=== PATIENT | female | born 1950 | race African-American/Black ===

== ENCOUNTER 2025-01-21 13:57 | Emergency (ER) | payer OTHER, MEDICAID, SELFPAY ==
[2025-01-21 13:59] VITALS: BMI 28.3
[2025-01-21 14:45] VITALS: BP 167/74; PULSE 80; RESP 18; TEMP 37.2; O2SAT 98
--- NOTE | 2025-01-21 15:06 | PD.EDRME ---
Rapid Medical Screening Exam RME Arrival date/time: 01/21/25 13:57 This is a 74-year-old female that comes in with complaints of right leg swelling. Pain. Patient was told by her primary doctor for possible left leg. Patient has a history of high blood pressure and hyperlipidemia. I have greeted and performed a focused initial assessment of this patient. Initial appropriate labs ordered at this time. A comprehensive ED assessment and evaluation of the patient and analysis of all test and completion of medical decision making process will be conducted by additional ED provider. Chief Complaint: General Adult/Misc Complain Time Seen by Provider: 01/21/25 14:35 Vital signs: Vital Signs Temperature 99 F 01/21/25 14:45 Pulse Rate 80 01/21/25 14:45 Respiratory Rate 18 01/21/25 14:45 Blood Pressure 167/74 H 01/21/25 14:45 Pulse Oximetry (%) 98 01/21/25 14:45 Oxygen Delivery Method Room Air 01/21/25 14:45
--- NOTE | 2025-01-21 15:31 | XR_ITS ---
Examination: Duplex scan of the lower extremity, unilateral right complete Date and time of exam: January 21, 2025 1606 hours INDICATIONS: Right leg swelling and pain beginning 4 days ago Technique: Duplex scan of the extremity veins using B-mode/grayscale imaging and Doppler spectral analysis and color flow Attention is directed to internal echogenicity, compression and augmentation involving these veins, color flow assessment, spectral analysis Findings: Major deep venous structures in the extremity demonstrate normal course and caliber. There is no evidence of deep vein thrombosis. Normal color flow and spectral analysis Right popliteal cyst 3.9 cm Impression: Negative for DVT..
[2025-01-21 16:10] LABS: Basophils % (Auto) 0 % (0-2.5); Eosinophils # (Auto) 0.1 Thou/mm3 (0.0-0.5); Eosinophils % (Auto) 3 % (0-10); Hematocrit 37.7 % (36.0-46.0); Hemoglobin 13.3 g/dL (12.0-16.0); Immature Granulocytes % (Auto) 0 % (0-0); Lymphocytes # (Auto) 1.9 Thou/mm3 (1.0-4.8); Lymphocytes % (Auto) 43 % (10-50); Mean Corpuscular HGB Conc 35.3 g/dl (31.0-37.0); Mean Corpuscular Hemoglobin 33.3 pg (25.0-35.0); Mean Corpuscular Volume 94 fL (80-100); Monocytes # (Auto) 0.3 Thou/mm3 (0.0-0.8); Monocytes % (Auto) 7 % (0-12); Neutrophils % (Auto) 46 % (37-80); Nucleated Red Blood Cell % 0 /100 WBC (0); Platelet Count 212 Thou/mm3 (140-440); RDW Standard Deviation 43.7 fL (36.4-46.3); White Blood Count 4.3 Thou/mm3 (3.6-11.0)
[2025-01-21 16:30] LABS: Alanine Aminotransferase 13 U/L (10-49); Albumin, Serum 4.4 gm/dL (3.4-4.8); Albumin/Globulin Ratio 1.3 (1.2-2.2); Alkaline Phosphatase 78 U/L (46-116); Anion Gap 8 (7-16); Aspartate Amino Transferase 16 U/L (0-34); BUN/Creatinine Ratio 20 Ratio (12-20); Bilirubin,Total 0.3 mg/dL (0.3-1.2); Blood Urea Nitrogen 22 mg/dL (9-23); Carbon Dioxide 30.7 mMol/L (20.0-31.0); Chloride 104 mMol/L (98-107); Creatinine (Component) 1.1 mg/dL (0.6-1.3); Estimated Creatinine Clearance 40.6 mL/min (>60); Globulin 3.4 gm/dL (2.3-3.5); Glucose 107 mg/dL (74-106); Osmolality,Calculated 288 (275-295); Potassium 3.6 mMol/L (3.4-5.1); Sodium 143 mMol/L (136-145); Total Protein 7.8 gm/dL (5.7-8.2); eGFR 52 See Note
[2025-01-21 16:32] LABS: Prothrombin Time 10.8 Seconds (9.0-12.2)
[2025-01-21 16:52] VITALS: BP 163/86; PULSE 72; RESP 18; TEMP 36.7; O2SAT 98
--- NOTE | 2025-01-21 18:26 | PD.EDEXREM ---
ED Extremity Problem RME/HPI General Chief complaint: General Adult/Misc Complain Stated complaint: SEND BY PCP FOR POSSIBEL DVT ON RIGHT LEG Time Seen by Provider: 01/21/25 14:35 Arrival date/time: 01/21/25 13:57 RME / HPI RME / HPI Narrative: 01/21/25 13:57 This is a 74-year-old female that comes in with complaints of right leg swelling. Pain. Patient was told by her primary doctor for possible left leg. Patient has a history of high blood pressure and hyperlipidemia. I have greeted and performed a focused initial assessment of this patient. Initial appropriate labs ordered at this time. A comprehensive ED assessment and evaluation of the patient and analysis of all test and completion of medical decision making process will be conducted by additional ED provider. This section includes all my notes and documentations, including HPI, PE, and ED course. Erick Eng MD HPI: 74 y/o female with Hx of Cardiac Arrhythmia, Hypertension, and Varicose Veins presents to ED c/o right lower leg swelling x 4 days. PCP was concerned for blood clot. No other complaints. ROS: All negative except as documented in HPI. PHYSICAL EXAM: General:? Alert and oriented.? No acute distress when remaining still. Eyes:? Conjunctivae and lids clear.?? ENT:? No nasal congestion.? Neck:? Supple.?? Heart:? RRR.? Lungs:? No respiratory distress.? Good air movement.? No rhonchi, wheezing, rales.?? Skin:? Warm and dry.?? Neuro:? Alert and oriented X 3. Legs: Right lower leg remarkable for moderate edema with no erythema or calor or tenderness. I reviewed all diagnostic test results. My review of the US report is Negative for DVT. Blood tests unremarkable. At this point, diagnoses include dependent right leg swelling. Recommended supportive care. Based on my best medical judgment, made decision no further evaluation or treatment indicated at this time. Patient understands and agrees to the discharge instructions customized and printed, see below. Discharge Instructions from Dr. Eng printed for you: 1. Fortunately, there is no DVT, blood clots. 2. When you are sitting or resting or sleeping, elevate your feet/ankles above your waist level. To get the swelling back into your circulation so you can urinate out the swelling. 3. See your doctor on 01/24/2025 if not completely better. 4. Seek immediate medical care with worsening or with any concerns. Erick Eng MD Related Data Home Medications ?Medication ?Instructions ?Recorded ?Confirmed hydrochlorothiazide 25 mg tablet 25 mg PO QAM #0 tabs 07/27/15 08/24/23 ezetimibe 10 mg tablet (Zetia) 10 mg PO QDAY 08/24/23 08/24/23 ibuprofen 800 mg tablet 800 mg PO Q8H PRN Pain 08/24/23 08/24/23 Allergies Allergy/AdvReac Type Severity Reaction Status Date / Time cephalexin AdvReac Severe HIVES Verified 01/21/25 14:00 Review of Systems Review of Systems Systems Reviewed: All systems reviewed, normal except as documented Past Medical History Past Medical History CARDIAC: Positive Cardiac Disorders, Cardiac Arrhythmia, Hypertension and Varicose Veins GASTROINTESTINAL: Positive Gastrointestinal Disorders and Obesity REPRODUCTIVE: Positive Previous Pregnancies MUSCULOSKELETAL: Positive Musculoskeletal Disorders, Arthritis and Scoliosis ENT: Positive Cataracts (thierry) OTHER HISTORY: Positive Hospitalization (surgery) Family History FAMILY HISTORY: Positive Family Surgery Surgical History SURGICAL: Positive Hysterectomy and Tubal Ligation ED Exam Narrative Physical exam: Refer to HPI above Course Quality Measures none Orders Category Date Time Status US venous doppler LE RT Stat Exams 01/21/25 15:31 Completed CBC Stat Lab 01/21/25 15:56 Completed Comprehensive Metabolic Panel Stat Lab 01/21/25 15:56 Completed PT [Prothrombin Time with INR] Stat Lab 01/21/25 15:56 Completed Vital Signs Vital signs: Vital Signs Temperature 99 F 01/21/25 14:45 Pulse Rate 80 01/21/25 14:45 Respiratory Rate 18 01/21/25 14:45 Blood Pressure 167/74 H 01/21/25 14:45 Pulse Oximetry (%) 98 01/21/25 14:45 Oxygen Delivery Method Room Air 01/21/25 14:45 Extremity Problem MDM Narrative MDM Narrative:: Scribe Attestation: aLnie Dorsey, am scribing for and in the presence of Dr. Eng. Provider Notation: Although this document has been carefully reviewed, there may still be some phonetic and other typographical errors.? These errors are purely grammatical due to imperfections in the software program and should not be construed in any way to? compromise the substance of the patient's medical care during this visit. 74 y/o female with Hx of Cardiac Arrhythmia, Hypertension, and Varicose Veins presents to ED c/o right lower leg swelling x 4 days. Patient data External records reviewed:: [facility] previous records (Prior ED records from 10/21/22 reviewed. Patient was seen for Abdominal pain, acute.) Clinical information provided by:: patient Social determinants that could affect healthcare access:: none Patient has the following chronic illnesses:: Cardiac Arrhythmia, Hypertension, Varicose Veins, Obesity, Arthritis and Scoliosis How is presenting disease/condition affected by chronic disease/condition?: exacerbated by Evaluation data The following diagnostics were reviewed and interpreted by me:: lab results and radiology exam(s) Lab and/or radiology exams considered but not ordered:: None Interpretation Summary: I reviewed all diagnostic test results. My review of the US report is Negative for DVT. Blood tests unremarkable. Medications / Prescriptions Medications or Prescriptions considered but not ordered:: None Medication administrations:: N/A Consultations Consultation(s) initiated? (list below): No Diagnosis Extremity Problem Differential Diagnosis: gout, cellulitis, superficial thrombophlebitis, deep venous thrombosis of upper extremity, lower extremity edema and deep vein thrombosis of lower extremity Most likely diagnosis given after review of the tests above:: Right leg swelling, dependent Admission Indicated Admission indicated?: not indicated Explain why admission is indicated or not indicated:: There was no indication for admission. Admission Request Was there a request for admission?: No Disposition Plan Disposition Plan: Discharge Discharge Attestation Discharge Attestation: The patient and all family members were given an opportunity to ask questions and understood the discharge instructions. Discharge instructions specifically effects, indications for sooner follow up or return to the emergency department, and the expected course of current diagnosis. Patient condition: Stable Discharge Plan Plan Patient Disposition: HOME (Self Care) Prescriptions/Referrals Prescriptions/Med Rec: No Action hydrochlorothiazide 25 MG tablet 25 mg PO QAM Qty: 0 ibuprofen 800 mg Tablet 800 mg PO Q8H PRN (Reason: Pain) ezetimibe [Zetia] 10 mg Tablet 10 mg PO QDAY Referrals: No Primary/Family,Physician [Primary Care Provider] - In 1 week Problem List Clinical Impression: Right leg swelling Patient/Caregiver Discharge Instructions Discharge Activity: activity as tolerated Education Materials: ED Leg Swelling in a Single Leg Additional Instructions: Discharge Instructions from Dr. Eng printed for you: 1. Fortunately, there is no DVT, blood clots. 2. When you are sitting or resting or sleeping, elevate your feet/ankles above your waist level. To get the swelling back into your circulation so you can urinate out the swelling. 3. See your doctor on 01/24/2025 if not completely better. 4. Seek immediate medical care with worsening or with any concerns. Print Language: Urdu Stand Alone Forms: Radha Award Info., Patient Portal Info Letter
[2025-01-21 18:31] VITALS: PULSE 73; RESP 18; TEMP 36.6; O2SAT 95
== END 2025-01-21 18:31 | disposition home or self-care (01) ==
PROVIDERS: Nurse Practitioner Family; Emergency Provider Emergency Medicine
DX: M79.89 Other specified soft tissue disorders (principal); E78.5 Hyperlipidemia, unspecified; I10 Essential (primary) hypertension
CPT/HCPCS: 36415; 80053; 85025; 85610; 93971; 99284

== ENCOUNTER 2025-03-27 08:00 | Emergency (ER) | payer OTHER, MEDICAID, SELFPAY ==
[2025-03-27 08:01] VITALS: BMI 36.5
[2025-03-27 08:07] VITALS: BP 138/82; PULSE 65; RESP 18; TEMP 36.9; O2SAT 98
--- NOTE | 2025-03-27 08:14 | PD.EDLOWEX ---
Lower Extremity Injury RME/HPI General Chief Complaint: Extremity Injury, Lower Stated Complaint: RIGHT KNEE PAIN X AM Time Seen by Provider: 03/27/25 08:13 Arrival date/time: 03/27/25 08:00 74-year-old female presents to the Emergency Department today for complaints of right knee pain patient ports his pain is acute on chronic patient reports she has had imaging of the knee already report she has follow-up with her PCP reports that she would like some pain medication and injection of steroids. Limitations: no limitations Related Data Home Medications ?Medication ?Instructions ?Recorded ?Confirmed hydrochlorothiazide 25 mg tablet 25 mg PO QAM #0 tabs 07/27/15 08/24/23 ezetimibe 10 mg tablet (Zetia) 10 mg PO QDAY 08/24/23 08/24/23 ibuprofen 800 mg tablet 800 mg PO Q8H PRN Pain 08/24/23 08/24/23 Previous Rx's ?Medication ?Instructions ?Recorded hydrocodone 5 mg-acetaminophen 325 1 tab PO BID PRN pain #10 tabs 03/27/25 mg tablet Allergies Allergy/AdvReac Type Severity Reaction Status Date / Time cephalexin AdvReac Severe HIVES Verified 03/27/25 08:03 Review of Systems Review of Systems Systems Reviewed: All systems reviewed, normal except as documented Constitutional Constitutional: Reports system reviewed and no additional complaints, except as documented, Denies fever(s) and Denies headache(s) Eyes Eyes: Reports system reviewed and no additional complaints, except as documented and Denies blurry vision ENT Ears, Nose, Mouth, and Throat: Reports system reviewed and no additional complaints, except as documented, Denies headache(s), Denies nasal congestion and Denies nasal discharge Cardiovascular Cardiovascular: Reports system reviewed and no additional complaints, except as documented, Denies chest pain and Denies dyspnea Respiratory Respiratory: Reports system reviewed and no additional complaints, except as documented, Denies chest congestion, Denies cough and Denies dyspnea Gastrointestinal Gastrointestinal: Reports system reviewed and no additional complaints, except as documented and Denies abdominal pain Musculoskeletal Musculoskeletal: Reports system reviewed and no additional complaints, except as documented, Denies abnormal gait, Denies arthralgias, Denies deformity, Reports joint swelling, Denies numbness, Reports stiffness and Denies tingling Integumentary/Breasts Skin/Breast: Reports system reviewed and no additional complaints, except as documented and Denies rash Neurologic Neurologic: Reports system reviewed and no additional complaints, except as documented, Reports as per HPI, Denies abnormal gait, Denies headache(s), Denies numbness and Denies tingling Past Medical History Past Medical History NEUROLOGIC: Negative Neurological Disorders or Seizures CARDIAC: Positive Cardiac Disorders, Cardiac Arrhythmia, Hypertension and Varicose Veins; Negative Congestive Heart Failure RESPIRATORY: Negative Chronic Obstructive Pulmonary Disease (COPD) GASTROINTESTINAL: Positive Gastrointestinal Disorders and Obesity GENITOURINARY: Negative Genitourinary Disorders or Renal Disease REPRODUCTIVE: Positive Previous Pregnancies MUSCULOSKELETAL: Positive Musculoskeletal Disorders, Arthritis and Scoliosis ENT: Positive Cataracts (thierry) ENDOCRINE: Negative Endocrine Disorders, Diabetes Mellitus Type 1 or Diabetes Mellitus Type 2 HEMATOLOGIC: Negative Blood Disorders OTHER HISTORY: Positive Hospitalization (surgery); Negative Autoimmune Disease, Shingles, Blood Transfusions, Blood Transfusion Reaction, Anesthesia Reactions or Cancer Family History FAMILY HISTORY: Positive Family Cardiac Disorders and Family Surgery; Negative Family Psychiatric Problems, Family Respiratory Disorders, Family Gastrointestinal Problems, Family Cancer or Family Anesthesia Reaction Surgical History SURGICAL: Positive Hysterectomy and Tubal Ligation Social History SMOKING STATUS: Never smoker SUBSTANCE USE: does not use ED Exam General Limitations: Present no limitations General appearance: Present alert and in no apparent distress Head Head exam: Present atraumatic Eye Eye exam: Present normal appearance, PERRL and EOMI ENT ENT exam: Present normal exam, normal oropharynx and mucous membranes moist Neck Neck exam: Present normal inspection, full ROM and trachea midline Chest Chest inspection: Present normal inspection and symmetric chest wall rise Respiratory Respiratory exam: Present normal lung sounds bilaterally Cardiovascular Cardiovascular exam: Present regular rate, normal rhythm and normal heart sounds Abdominal Exam Abdominal exam: Present soft and normal bowel sounds Extremities Exam Extremities exam: Present full ROM, tenderness, normal capillary refill and joint swelling; Absent pedal edema or calf tenderness Back Exam Back exam: Present normal inspection and full ROM Neurological Exam Neurological exam: Present alert, oriented X3 and CN II-XII intact Psychiatric Psychiatric exam: Present normal affect and normal mood Skin Skin exam: Present warm, dry, intact and normal color Course Quality Measures none Orders Category Date Time Status Dexamethasone Inj [Decadron Inj] Med 03/27/25 08:18 Discontinued 10 mg IM X1 ONE Vital Signs Vital signs: Vital Signs Temperature 98.5 F 03/27/25 08:07 Pulse Rate 65 03/27/25 08:07 Respiratory Rate 18 03/27/25 08:07 Blood Pressure 138/82 H 03/27/25 08:07 Pulse Oximetry (%) 98 03/27/25 08:07 Oxygen Delivery Method Room Air 03/27/25 08:07 O2 saturation 98% on room air with normal limits Extremity Injury, Lower MDM Narrative MDM Narrative:: 74-year-old female presents to the Emergency Department today for complaints of right knee pain patient ports his pain is acute on chronic patient reports she has had imaging of the knee already report she has follow-up with her PCP reports that she would like some pain medication and injection of steroids. On exam patient well-appearing does not appear ill or toxic no acute stress patient is mild swelling of the anterior portion of the right knee no significant swelling no redness or warmth I did offer imaging to the patient she declined Patient given dexamethasone discharge home with [place] Patient discharged home in no distress to follow-up with primary care doctor in the next 24 to 48 hours and for any worsening symptoms to return to the ER immediately Patient data External records reviewed:: [facility] previous records Clinical information provided by:: patient Social determinants that could affect healthcare access:: none Patient has the following chronic illnesses:: None How is presenting disease/condition affected by chronic disease/condition?: no chronic disease Evaluation data The following diagnostics were reviewed and interpreted by me:: other (specify) (N/A) Lab and/or radiology exams considered but not ordered:: Consider not ordered Interpretation Summary: N/A Medications / Prescriptions Medications or Prescriptions considered but not ordered:: Given Medication administrations:: Medication Administration History Discontinued Medications Dexamethasone Sodium Phosphate (Dexamethasone Sod Phos Inj 10 Mg/Ml Vial) 10 mg IM X1 ONE Stop: 03/27/25 08:19 Given Consultations Consultation(s) initiated? (list below): No Diagnosis Extremity Injury, Lower Differential Diagnosis: acute internal derangement of knee and other (Knee pain right) Most likely diagnosis given after review of the tests above:: Acute on chronic knee pain Admission Indicated Admission indicated?: not indicated Admission Request Was there a request for admission?: No Disposition Plan Disposition Plan: Discharge Discharge Attestation Discharge Attestation: The patient and all family members were given an opportunity to ask questions and understood the discharge instructions. Discharge instructions specifically effects, indications for sooner follow up or return to the emergency department, and the expected course of current diagnosis. Patient condition: Stable Discharge Plan Plan Patient Disposition: HOME (Self Care) Discharge Disposition comment: Stable Prescriptions/Referrals Prescriptions/Med Rec: New hydrocodone-acetaminophen 5-325 mg tablet 1 tab PO BID MDD 10 PRN (Reason: pain) Qty: 10 0RF No Action hydrochlorothiazide 25 MG tablet 25 mg PO QAM Qty: 0 ibuprofen 800 mg Tablet 800 mg PO Q8H PRN (Reason: Pain) ezetimibe [Zetia] 10 mg Tablet 10 mg PO QDAY Problem List Clinical Impression: Acute pain of right knee Patient/Caregiver Discharge Instructions Education Materials: ED Arthralgia Additional Instructions: Please follow up with your primary care doctor in the next 24-48hrs for any worsening symptoms return here immediately Print Language: [place] Stand Alone Forms: Radha Award Info., Patient Portal Info Letter PA/DESIGN/ANIMATION INSTRUCTOR Supervising Physician PA/DESIGN/ANIMATION INSTRUCTOR Supervising Physician: Dr. leigh
[2025-03-27] MEDS: DEXAMETHASONE SOD PHOS INJ 10 MG/ML VIAL IM (08:26)
== END 2025-03-27 08:49 | disposition home or self-care (01) ==
LOC: SERX 08:37
PROVIDERS: Emergency Provider Family Medicine; PCP Nurse Practitioner Family
DX: M25.561 Pain in right knee (principal)
CPT/HCPCS: 96372; 99283; J1100

== ENCOUNTER → 2025-04-17 | Outpatient (CLI) | payer OTHER, MEDICAID, SELFPAY ==
--- NOTE | 2025-04-17 09:52 | XR_ITS ---
Examination: Shoulder,left, 3 views Technique: Shoulder AP internal rotation, AP external rotation, Y view shoulder, 3 views Exam date and time :April 17, 2025 1039 hours INDICATIONS: Left shoulder pain months. FINDINGS: Moderate osteopenia. Moderate narrowing, humeral joint. No fracture or dislocation IMPRESSION: Moderate narrowing glenohumeral joint
== END | disposition home or self-care (01) ==
PROVIDERS: PCP Nurse Practitioner Family; Referring Provider Nurse Practitioner Family; Visit Provider Nurse Practitioner Family
DX: M25.812 Other specified joint disorders, left shoulder (principal)
CPT/HCPCS: 73030

== ENCOUNTER → 2025-04-30 | Outpatient (CLI) | payer OTHER, MEDICAID, SELFPAY ==
--- NOTE | 2025-04-30 13:00 | XR_ITS ---
Examination: Screening digital mammography, bilateral Computer aided detection 3-D breast Tomosynthesis, bilateral Date and time of exam: April 30, 2025 1303 hours Compared to mammograms dating to September 16, 2013 Indication: Screening Technique: Nonmagnified MLO, CC views of the breasts to been obtained, reconstructed from 3-D Tomosynthesis images. R2 computer aided detection program utilized for evaluation of suspicious masses and/or abnormal calcifications. 3-D Tomosynthesis images obtained. Findings: Scattered areas of fibroglandular density. Benign calcifications. No interval suspicious masses Impression: BI-RADS category II: Benign Findings.
--- NOTE | 2025-04-30 13:20 | XR_ITS ---
Examination: Bone densitometry Date and time of exam:April 30, 2025 1331 hours INDICATIONS: Hysterectomy age 30 Technique: Lumbar spine and hip total bone mineralization values of an calculated. Peak reference and age match control results have been displayed. Findings: Lumbar spine total bone mineralization is0.928 gm/cm2. This is 2.0 standard deviations below peak reference. This is 0.7 standard deviations above age-matched controls. Hip total bone mineralization is 0.790 gm/cm2 This is 1.5 standard deviations below peak reference. This is 0.2 standard deviations below age-matched controls Impression: There is osteopenia based on lumbar spine measurements. There is osteopenia based on hip measurements
== END | disposition home or self-care (01) ==
LOC: CDIM 12:43
PROVIDERS: PCP Nurse Practitioner Family; Referring Provider Nurse Practitioner Family; Visit Provider Nurse Practitioner Family
DX: Z12.31 Encounter for screening mammogram for malignant neoplasm of breast (principal); R92.323 Mammographic fibroglandular density, bilateral breasts; R92.1 Mammographic calcification found on diagnostic imaging of breast; M85.89 Other specified disorders of bone density and structure, multiple sites
CPT/HCPCS: 77063; 77067; 77080

== ENCOUNTER → 2025-05-05 | Outpatient (CLI) | payer OTHER, MEDICAID, SELFPAY ==
--- NOTE | 2025-05-05 08:42 | XR_ITS ---
Examination: Left elbow 3 views Technique: Elbow AP, oblique, lateral 3 views Exam date and time: May 052024 0854 hours INDICATIONS: Left elbow pain 6 months. FINDINGS: Moderate osteopenia. Mild diffuse cerebral osteoarthritis. No fracture. No elbow effusion IMPRESSION: Mild osteoarthritis
--- NOTE | 2025-05-05 08:42 | XR_ITS ---
Examination: Shoulder,right, 3 views Technique: Shoulder AP internal rotation, AP external rotation, Y view shoulder, 3 views Exam date and time :May 05, 2025, 0859 hours INDICATIONS: Injury to the shoulder one year ago with surgery, shoulder pain 9 months FINDINGS: Moderate osteopenia. Moderate narrowing glenohumeral joint. Resection distal clavicle No fracture or IMPRESSION: Moderate narrowing glenohumeral joint
== END | disposition home or self-care (01) ==
LOC: COPL 08:30 → CDIM 05-23 13:36
PROVIDERS: PCP Nurse Practitioner Family; Referring Provider Nurse Practitioner Family; Visit Provider Nurse Practitioner Family
DX: M25.811 Other specified joint disorders, right shoulder (principal); M19.022 Primary osteoarthritis, left elbow
CPT/HCPCS: 73030; 73080

== ENCOUNTER 2025-05-22 09:04 | Outpatient (AMB) | payer OTHER, MEDICAID, SELFPAY ==
--- NOTE | 2025-05-22 09:21 | PD.ORTHCLVIS ---
Vital signs 05/22/25 09:22 Height 1.52 m Height Method Measured Weight 83.574 kg Weight Measurement Method Standing Scale BMI 36.1 BP 150/73 H Blood Pressure Source Automatic Cuff Blood Pressure Location Left Upper Arm Position Sitting Respiration 18 Pulse 68 Pulse Source Monitor Temp 98.4 F Temp Source Temporal Artery Scan Pulse Oximetry (%) 96 Oxygen Delivery Method Room Air Med/Allergies Allergies & Medications Allergies cephalexin Adverse Reaction (Severe, Verified 05/22/25 09:22) HIVES Medication Reconciliation hydrochlorothiazide 25 mg tablet 25 mg PO QAM #0 tabs 07/27/15 [History Confirmed 05/22/25] ezetimibe 10 mg tablet (Zetia) 10 mg PO QDAY 08/24/23 [History Confirmed 05/22/25] ibuprofen 800 mg tablet 800 mg PO Q8H PRN Pain 08/24/23 [History Confirmed 05/22/25] hydrocodone 5 mg-acetaminophen 325 mg tablet 1 tab PO BID PRN pain #10 tabs 03/27/25 [Rx Confirmed 05/22/25] Exam Exam Breathing is nonlabored. Patient has a normal mood and affect. Bilateral extremities were evaluated and demonstrates sensation intact to light touch. Palpable pedal pulses are present. No significant edema is present. Bilateral hips were examined. The patient has no pain with log roll of the hips. Internal rotation to 30 degrees and external rotation to 30 degrees is painless. Negative FADIR. Left knee was examined today. The left knee is in reasonable alignment. Range of motion from 0-120 degrees. Knee is stable to varus and valgus as well as AP translation with <5mm. Patient has a negative McMurrays. There is no pain with patellofemoral compression and no crepitus noted. The knee is nontender to palpation. The right knee was also examined. The right knee is in varus alignment. Range of motion from 0-115 degrees. Knee is stable to varus and valgus as well as AP translation with <5mm. Patient has a negative McMurrays. There is no pain with patellofemoral compression and no crepitus noted. The knee is tender to palpation medially. Assessment and Plan Problem List (1) Arthritis of knee, right: Status: Acute Plan: Patient is a pleasant 75-year-old female with right knee pain and right knee arthritis. We discussed different treatment options. She also has a synovial cyst. We discussed the natural history of a synovial cyst today. She would like a cortisone injection at the next visit. I would like to get weightbearing x-rays as I cannot see her x-rays today Advanced Care Planning Discussion Advance care planning discussed with:: patient Office Procedures GNS Level of Care Nursing/Assessment Patient Status: Initial/New Patient Nursing Assessment/Reassesment: Medication Reconciliation, Orthostatic Vitals, Update PMH in EMR and Vital Signs Coordination of Care: Complex Care and Chronic Disease 1-5, Education Complex Pt/Fam, Consent,records obtained, informed consent, Lab and Imaging orders, Results/Orders obtained and Staff clarify orders New Patient Charge New Patient Point Assignment: [id number] New Patient Point Charge: [employer] Level 4 ([id number]) MA Intake Visit Data Collection New Patient or Established: Established Patient (seen at [facility] within 3 years) Reason for Visit:: CYST RIGHT KNEE Seen by Clinical Staff ONLY (RN/MA): No 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: No PCP or OBGYN visit in last 3 months: Yes Hx Now: No Do You Feel Safe at Home: Yes Authorities Contacted: N/A Questionairres Past Medical History Past Medical History Have you ever been diagnosed with any of the following: Neurological Problems Seizures: No Cardiology Problems Cardiac Arrhythmia: Yes Congestive Heart Failure: No Hypertension: Yes Varicose Veins: Yes Respiratory Problems Chronic Obstructive Pulmonary Disease (COPD): No Stomache/Intestinal Problems Obesity: Yes Genital/Urinary Problems Renal Disease: No Reproductive Problems Previous Pregnancies: Yes Musculoskeletal Problems Arthritis: Yes Scoliosis: Yes Head,Eye,Nose,Throat Problems Cataracts: Yes (thierry) Endocrine Problems Diabetes Mellitus Type 1: No Diabetes Mellitus Type 2: No Other Problems Hospitalization: Yes (surgery) Shingles: No Blood Transfusions: No Blood Transfusion Reaction: No Anesthesia Reactions: No Cancer: No Surgical History Hysterectomy: Yes Subjective Visit Visit for: new patient and knee Immunization / Flu Flu Vaccine in the Last 12 Months: No Flu Vaccine Exclusion Criteria: Refused by Patient History of Present Illness Chief complaint: CYST RIGHT KNEE Date of injury / onset of symptoms: DECEMBER 2024 Patient is a pleasant 75-year-old female with right knee pain and right knee arthritis. She was also found to have a synovial cyst in the emergency room. She cannot take anti-inflammatories due to chronic kidney disease. She has had no injections in her knees. 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
[2025-05-22 09:22] VITALS: BP 150/73; PULSE 68; RESP 18; TEMP 36.9; O2SAT 96; BMI 36.1
--- NOTE | 2025-05-22 09:32 | XR_ITS ---
Examination: Bilateral AP knees single view Right knee PA lateral axial 3 views TECHNIQUE: Bilateral AP knees single view standing Right knee PA standing flexion, standing lateral, axial right knee 3 views total 4 views Date and time: May 22, 2025 0945 hours INDICATIONS: Right knee pain beginning 5 months ago. FINDINGS: Prominent osteopenia. Mild narrowing medial lateral joint spaces right knee Moderate to advanced narrowing lateral joint space right knee Moderate to advanced narrowing right patellofemoral joint IMPRESSION: Moderate to advanced narrowing lateral joint space and patellofemoral joint space right knee
== END 2025-05-22 09:36 | disposition home or self-care (01) ==
PROVIDERS: PCP Nurse Practitioner Family; Referring Provider Nurse Practitioner Family; Supervising Provider Orthopaedic Surgery Adult Reconstructive Orthopaedic Surgery; Visit Provider Orthopaedic Surgery Adult Reconstructive Orthopaedic Surgery
DX: M17.11 Unilateral primary osteoarthritis, right knee (principal); M25.561 Pain in right knee; M71.38 Other bursal cyst, other site; N18.9 Chronic kidney disease, unspecified; E66.9 Obesity, unspecified; Z68.36 Body mass index [BMI] 36.0-36.9, adult
CPT/HCPCS: 73564; 99204; G0463

== ENCOUNTER 2025-05-27 13:07 | Outpatient (AMB) | payer OTHER, MEDICAID, SELFPAY ==
--- NOTE | 2025-05-27 13:22 | ORTHONT_ITS ---
Vital signs 05/27/25 13:23 Height 1.52 m Height Method Stated Weight 83.716 kg Weight Measurement Method Standing Scale BMI 36.2 BP 125/75 Blood Pressure Source Automatic Cuff Blood Pressure Location Left Upper Arm Position Sitting Respiration 19 Pulse 69 Pulse Source Monitor Temp 97.8 F Temp Source Temporal Artery Scan Pulse Oximetry (%) 97 Oxygen Delivery Method Room Air Med/Allergies Allergies & Medications Allergies cephalexin Adverse Reaction (Severe, Verified 05/27/25 13:24) HIVES Medication Reconciliation hydrochlorothiazide 25 mg tablet 25 mg PO QAM #0 tabs 07/27/15 [History Confirmed 05/27/25] ezetimibe 10 mg tablet (Zetia) 10 mg PO QDAY 08/24/23 [History Confirmed 05/27/25] ibuprofen 800 mg tablet 800 mg PO Q8H PRN Pain 08/24/23 [History Confirmed 05/27/25] hydrocodone 5 mg-acetaminophen 325 mg tablet 1 tab PO BID PRN pain #10 tabs 03/27/25 [Rx Confirmed 05/27/25] Exam Exam Breathing is nonlabored. Patient has a normal mood and affect. Bilateral extremities were evaluated and demonstrates sensation intact to light touch. Palpable pedal pulses are present. No significant edema is present. Bilateral hips were examined. The patient has no pain with log roll of the hips. Internal rotation to 30 degrees and external rotation to 30 degrees is painless. Negative FADIR. Left knee was examined today. The left knee is in reasonable alignment. Range of motion from 0-120 degrees. Knee is stable to varus and valgus as well as AP translation with <5mm. Patient has a negative McMurrays. There is no pain with patellofemoral compression and no crepitus noted. The knee is nontender to palpation. The right knee was also examined. The right knee is in varus alignment. Range of motion from 0-115 degrees. Knee is stable to varus and valgus as well as AP translation with <5mm. Patient has a negative McMurrays. There is no pain with patellofemoral compression and no crepitus noted. The knee is tender to palpation medially. Right knee x-rays demonstrate valgus arthritis with complete joint space narrowing of the lateral joint space Assessment and Plan Problem List (1) Arthritis of knee, right: Status: Acute Plan: Patient is a pleasant 75-year-old female with right knee pain and right knee arthritis. We discussed different treatment options. She also has a synovial cyst. We discussed the natural history of a synovial cyst today. Recommend knee cortisone injection as patient would like to proceed with conservative treatment at this time. The risks and benefits of the procedure were reviewed with the patient and patient gave verbal consent to continue with the procedure. Procedure: performed by Dr. Smiley Using sterile technique the Right knee was thoroughly prepped with alcohol, and approximately 1 cc of Depo-Medrol 80mg/mL and 4 cc of 0.2% ropivacaine was injected without resistance into the medial tibial femoral joint space. The patient tolerated the procedure. Advanced Care Planning Discussion Advance care planning discussed with:: patient Office Procedures GNS Level of Care Nursing/Assessment Patient Status: Established Patient Nursing Assessment/Reassesment: Medication Reconciliation, Update PMH in EMR and Vital Signs Coordination of Care: Complex Care and Chronic Disease 1-5, Education Complex Pt/Fam, Consent,records obtained, informed consent, Results/Orders obtained and Staff clarify orders Established Patient Charge Established Patient Point Assignment: 95 Established Patient Point Charge: EP Level 3 (80-115) Surgical Proc/IM SQ injection Minor Surgical Procedure: Yes (KNEE INJECTION ) Medication Given Medication Given Medication Given: Yes Documented Dose Given: 1 Route: Infiitration Medication Given Medication Given Medication Given: Yes Documented Dose Given: 4 Route: Infiitration Office Meds methylprednisolone acetate 80 mg/mL suspension for injection Performing Provider: Chin Smiley MD Performing Location: [facility] Administered by: Chin Smiley MD on 05/27/25 13:07 Dose Route Admin Location Dispensed Lot Number Expiration Date Pack age [facility] Senior [employer] 80 mg intra-articular KNEE 1 mL [id number] 02/08/27 [address]-6 [id number] [employer] ropivacaine (PF) 2 mg/mL (0.2 %) injection solution Performing Provider: Chin Smiley MD Performing Location: [facility] Administered by: Chin Smiley MD on 05/27/25 13:07 Dose Route Admin Location Dispensed Lot Number Expiration Date Pack age [facility] Senior Scrum Master 20 mL Infiltration KNEE 20 mL [id number] 10/11/27 30611-776-96 [id number] [facility] Intake Visit Data Collection New Patient or Established: Established Patient (seen at [facility] within 3 years) Reason for Visit:: XRAY RESULTS/BL KNEE Seen by Clinical Staff ONLY (RN/MA): No Stock Analyst Required: No PCP or OBGYN visit in last 3 months: Yes Hx Now: No Do You Feel Safe at Home: Yes Authorities Contacted: N/A Questionairres Past Medical History Past Medical History Have you ever been diagnosed with any of the following: Neurological Problems Seizures: No Cardiology Problems Cardiac Arrhythmia: Yes Congestive Heart Failure: No Hypertension: Yes Varicose Veins: Yes Respiratory Problems Chronic Obstructive Pulmonary Disease (COPD): No Stomache/Intestinal Problems Obesity: Yes Genital/Urinary Problems Renal Disease: No Reproductive Problems Previous Pregnancies: Yes Musculoskeletal Problems Arthritis: Yes Scoliosis: Yes Head,Eye,Nose,Throat Problems Cataracts: Yes (thierry) Endocrine Problems Diabetes Mellitus Type 1: No Diabetes Mellitus Type 2: No Other Problems Hospitalization: Yes (surgery) Shingles: No Blood Transfusions: No Blood Transfusion Reaction: No Anesthesia Reactions: No Cancer: No Surgical History Hysterectomy: Yes Subjective Visit Visit for: follow up visit, knee and x-rays Immunization / Flu Flu Vaccine in the Last 12 Months: No Flu Vaccine Exclusion Criteria: Refused by Patient History of Present Illness Chief complaint: CYST RIGHT KNEE/XRAY RESULTS Date of injury / onset of symptoms: DECEMBER 2024 Patient is a pleasant 75-year-old female with right knee pain and right knee arthritis. She was also found to have a synovial cyst in the emergency room. She cannot take anti-inflammatories due to chronic kidney disease. She has had no injections in her knees. 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
[2025-05-27 13:23] VITALS: BP 125/75; PULSE 69; RESP 19; TEMP 36.6; O2SAT 97; BMI 36.2
== END 2025-05-27 13:43 | disposition home or self-care (01) ==
LOC: HODSRG 13:07
PROVIDERS: PCP Nurse Practitioner Family; Referring Provider Nurse Practitioner Family; Supervising Provider Orthopaedic Surgery Adult Reconstructive Orthopaedic Surgery; Visit Provider Orthopaedic Surgery Adult Reconstructive Orthopaedic Surgery
DX: M17.11 Unilateral primary osteoarthritis, right knee (principal); M25.561 Pain in right knee; M71.38 Other bursal cyst, other site; I12.9 Hypertensive chronic kidney disease with stage 1 through stage 4 chronic kidney disease, or unspecified chronic kidney disease; N18.9 Chronic kidney disease, unspecified; E66.9 Obesity, unspecified; Z71.3 Dietary counseling and surveillance; Z68.36 Body mass index [BMI] 36.0-36.9, adult
CPT/HCPCS: 20610; 99213; J1010; J2795; G0463

== ENCOUNTER → 2025-06-27 | Outpatient (CLI) | payer OTHER, MEDICAID, SELFPAY ==
--- NOTE | 2025-06-27 09:30 | XR_ITS ---
Examination: Retroperitoneal ultrasound, complete Technique: Multiple high resolution grayscale images of the retroperitoneum obtained, including kidneys and bladder. Exam date and time: June 27, 2025, 10:00 a.m. INDICATIONS: Chronic kidney disease stage IIIa diagnosed 4 months ago FINDINGS: Right kidney 10.6 cm renal cortex 1.3 cm Left kidney 9.8 cm renal cortex 1.5 cm 12 mm upper pole right renal cyst Mild renal scar formation No hydronephrosis No bladder mass or bladder calculi Bladder prevoid volume 151 cc IMPRESSION: Small kidneys with bilateral renal cortical thinning Mild renal scar formation No hydronephrosis
== END | disposition home or self-care (01) ==
PROVIDERS: PCP Family Medicine; Referring Provider Internal Medicine Nephrology; Visit Provider Internal Medicine Nephrology
DX: N28.89 Other specified disorders of kidney and ureter (principal); N18.32 Chronic kidney disease, stage 3b
CPT/HCPCS: 76770

== ENCOUNTER 2025-08-26 13:09 | Outpatient (AMB) | payer OTHER, MEDICAID, SELFPAY ==
[2025-08-26 13:31] VITALS: BP 182/78; PULSE 83; RESP 19; TEMP 35.7; O2SAT 97; BMI 35.6
--- NOTE | 2025-08-26 13:31 | ORTHONT_ITS ---
Vital signs 08/26/25 13:31 Height 1.52 m Height Method Stated Weight 82.242 kg Weight Measurement Method Standing Scale BMI 35.6 BP 182/78 H Blood Pressure Source Automatic Cuff Blood Pressure Location Left Upper Arm Position Sitting Respiration 19 Pulse 83 Pulse Source Monitor Temp 96.3 F L Temp Source Temporal Artery Scan Pulse Oximetry (%) 97 Oxygen Delivery Method Room Air Med/Allergies Allergies & Medications Allergies cephalexin Adverse Reaction (Severe, Verified 08/26/25 13:32) HIVES Medication Reconciliation hydrochlorothiazide 25 mg tablet 25 mg PO QAM #0 tabs 07/27/15 [History Confirmed 08/26/25] ezetimibe 10 mg tablet (Zetia) 10 mg PO QDAY 08/24/23 [History Confirmed 08/26/25] ibuprofen 800 mg tablet 800 mg PO Q8H PRN Pain 08/24/23 [History Confirmed 08/26/25] hydrocodone 5 mg-acetaminophen 325 mg tablet 1 tab PO BID PRN pain #10 tabs 03/27/25 [Rx Confirmed 08/26/25] Exam Exam Breathing is nonlabored. Patient has a normal mood and affect. Bilateral extremities were evaluated and demonstrates sensation intact to light touch. Palpable pedal pulses are present. No significant edema is present. Bilateral hips were examined. The patient has no pain with log roll of the hips. Internal rotation to 30 degrees and external rotation to 30 degrees is painless. Negative FADIR. Left knee was examined today. The left knee is in reasonable alignment. Range of motion from 0-120 degrees. Knee is stable to varus and valgus as well as AP translation with <5mm. Patient has a negative McMurrays. There is no pain with patellofemoral compression and no crepitus noted. The knee is nontender to palpation. The right knee was also examined. The right knee is in varus alignment. Range of motion from 0-115 degrees. Knee is stable to varus and valgus as well as AP translation with <5mm. Patient has a negative McMurrays. There is no pain with patellofemoral compression and no crepitus noted. The knee is tender to palpation medially. Right knee x-rays demonstrate valgus arthritis with complete joint space narrowing of the lateral joint space Assessment and Plan Problem List (1) Arthritis of knee, right: Status: Acute Plan: Patient is a pleasant 75-year-old female with right knee pain and right knee arthritis. We discussed different treatment options. She also has a synovial cyst. We discussed the natural history of a synovial cyst today. Recommend knee cortisone injection as patient would like to proceed with conservative treatment at this time. The risks and benefits of the procedure were reviewed with the patient and patient gave verbal consent to continue with the procedure. Procedure: performed by Dr. Smiley Using sterile technique the Right knee was thoroughly prepped with alcohol, and approximately 1 cc of Depo-Medrol 80mg/mL and 4 cc of 0.2% ropivacaine was injected without resistance into the medial tibial femoral joint space. The patient tolerated the procedure. Advanced Care Planning Discussion Advance care planning discussed with:: patient Office Procedures GNS Level of Care Nursing/Assessment Patient Status: Established Patient Nursing Assessment/Reassesment: Medication Reconciliation, Update PMH in EMR and Vital Signs Coordination of Care: Complex Care and Chronic Disease 1-5, Education Complex Pt/Fam, Consent,records obtained, informed consent, Results/Orders obtained and Staff clarify orders Established Patient Charge Established Patient Point Assignment: 95 Established Patient Point Charge: EP Level 3 (80-115) Surgical Proc/IM SQ injection Minor Surgical Procedure: Yes (RIGHT KNEE INJECTION) Medication Given Medication Given Medication Given: Yes Documented Dose Given: 1 Route: Infiitration Medication Given Medication Given Medication Given: Yes Documented Dose Given: 4 Route: Infiitration Office Meds methylprednisolone acetate 80 mg/mL suspension for injection Performing Provider: Chin mSiley MD Performing Location: [facility] Administered by: Chin Smiley MD on 08/26/25 14:28 Dose Route Admin Location Dispensed Lot Number Expiration Date Pack age [facility] Customer Manager 80 mg intra-articular 1 mL [id number] 04/09/27 [address]-6 7 [id number] [employer] ropivacaine (PF) 2 mg/mL (0.2 %) injection solution Performing Provider: Chin Smiley MD Performing Location: [facility] Administered by: Chin Smiley MD on 08/26/25 14:28 Dose Route Admin Location Dispensed Lot Number Expiration Date Pack age [facility] Customer [employer] 20 mL Infiltration 20 mL [id number] 10/10/27 03941-741-10 [id number] [facility] Intake Visit Data Collection New Patient or Established: Established Patient (seen at [facility] within 3 years) Reason for Visit:: KNEE INJECTION Seen by Clinical Staff ONLY (RN/MA): No 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 Music 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: No PCP or OBGYN visit in last 3 months: Yes Hx Now: No Do You Feel Safe at Home: Yes Authorities Contacted: N/A Questionairres Past Medical History Past Medical History Have you ever been diagnosed with any of the following: Neurological Problems Seizures: No Cardiology Problems Cardiac Arrhythmia: Yes Congestive Heart Failure: No Hypertension: Yes Varicose Veins: Yes Respiratory Problems Chronic Obstructive Pulmonary Disease (COPD): No Stomache/Intestinal Problems Obesity: Yes Genital/Urinary Problems Renal Disease: No Reproductive Problems Previous Pregnancies: Yes Musculoskeletal Problems Arthritis: Yes Scoliosis: Yes Head,Eye,Nose,Throat Problems Cataracts: Yes (thierry) Endocrine Problems Diabetes Mellitus Type 1: No Diabetes Mellitus Type 2: No Other Problems Hospitalization: Yes (surgery) Shingles: No Blood Transfusions: No Blood Transfusion Reaction: No Anesthesia Reactions: No Cancer: No Surgical History Hysterectomy: Yes Subjective Visit Visit for: follow up visit, knee and x-rays Immunization / Flu Flu Vaccine in the Last 12 Months: No Flu Vaccine Exclusion Criteria: Refused by Patient History of Present Illness Chief complaint: CYST RIGHT KNEE/XRAY RESULTS Date of injury / onset of symptoms: DECEMBER 2024 Patient is a pleasant 75-year-old female with right knee pain and right knee arthritis. She was also found to have a synovial cyst in the emergency room. She cannot take anti-inflammatories due to chronic kidney disease. She has had no injections in her knees. 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
== END 2025-08-26 13:39 | disposition home or self-care (01) ==
LOC: HODSRG 13:09
PROVIDERS: PCP Nurse Practitioner Family; Referring Provider Nurse Practitioner Family; Supervising Provider Orthopaedic Surgery Adult Reconstructive Orthopaedic Surgery; Visit Provider Orthopaedic Surgery Adult Reconstructive Orthopaedic Surgery
DX: M17.11 Unilateral primary osteoarthritis, right knee (principal); N18.9 Chronic kidney disease, unspecified; M71.38 Other bursal cyst, other site
CPT/HCPCS: 20610; 99213; J1010; J2795; G0463